=== PATIENT | male | born 1940 | race Caucasian/White ===

== ENCOUNTER 2022-08-24 04:24 | Emergency (ER) | payer OTHER ==
[~2022-08-24] VITALS: Ht 188 cm; Wt 99.8 kg
[2022-08-24] MEDS ORDERED: LIDOCAINE 2% JEL UROJET 10 ML MM ONE (04:36)
--- NOTE | 2022-08-24 04:40 | NUR ---
[id number] FOR "PULLING OUT FERNANDEZ CATH". PATIENT IS AAOX4. ABLE TO MAKE NEEDS KNOWN. ATTACHED TO MONITOR. VITALS CHECKED.
--- NOTE | 2022-08-24 04:55 | NUR ---
IFC F16 INSERTED ATTACHED TO UROBAG. FLUSHING DONE. WILL OBSERVE FOR SIGNS OF BLEEDING.
--- NOTE | 2022-08-24 06:00 | NUR ---
PT FOR DISCHARGE. WILL ARRANGE FOR [facility] TRANSPORTATION. NEEDS ATTENDED. SHIFTED THE UROBAG TO LEG BAG.
--- NOTE | 2022-08-24 06:30 | NUR ---
CALL FROM [facility]. BLS ETA [phone].
--- NOTE | 2022-08-24 07:24 | NUR ---
REPORT GIVEN TO MAIK ALMONTE. PATIENT IS WAITING FOR TRANSPO TO BRING HIM HOME.
[2022-08-24 07:35] VITALS: BP 133/72
== END 2022-08-24 08:56 | disposition home or self-care (01) ==
LOC: ER 04:26
DX: T83.091A Other mechanical complication of indwelling urethral catheter, initial encounter (principal)
CPT/HCPCS: 99284; 51702; J3490